=== PATIENT | female | born 1965 | race American Indian/Alaskan Native ===

== ENCOUNTER 2017-07-27 09:19 | Day surgery (SDC) | payer OTHER ==
[~2017-07-27 09:19] MED LIST: NACL 0.9% 1000 ML 1,000 ML ONE
--- NOTE | 2017-07-27 09:55 | Anesthesia Consultation ---
Anesthesia Consult and Med Hx Date of service: 07/27/17 - Airway Anesthetic Teeth Evaluation: Good, Chipped ROM Head & Neck: Adequate Mental/Hyoid Distance: Adequate Mallampati Class: Class III Intubation Access Assessment: Probably Good - Pulmonary Exam CTA: Yes - Cardiac Exam Cardiac Exam: RRR - Pre-Operative Health Status ASA Pre-Surgery Classification: ASA2 Proposed Anesthetic Plan: MAC - Pulmonary Hx Smoking: Yes (current smoker, a pack/week) - Cardiovascular System Hx Hypertension: Yes (self controlled) - Central Nervous System Hx Psychiatric Problems: Yes (anxiety and takes meds)
--- NOTE | 2017-07-27 09:55 | Anesthesia Day of Surgery ---
Anesthesia Day of Surgery - Day of Surgery Patient Examined: Yes Patient H&P Reviewed: Yes Patient is NPO: Yes
[2017-07-27] MEDS ORDERED: NACL 0.9% 1000 ML 1,000 ML IV SCH (11:00)
[2017-07-27] MEDS ORDERED: DIPRIVAN 10 MG/ML IV ONE ×3 (11:23→12:12)
--- NOTE | 2017-07-27 12:16 | Operative Report ---
Operative Report Operative Report: Date of procedure: 07/27/2017 Procedure: Colonoscopy with multiple snare polypectomies. Attending physician: Wally Givens MD Fashion Adviser: Wally Givens MD Indication: Patient is a 52-year-old female who presents for screening colonoscopy. The colonoscopy serves to evaluate patient for colorectal cancer screening. Consent: Informed consent was obtained after advising the patient and family regarding nature of this procedure, its indications, potential benefits as well as possible complications including but not limited to bleeding perforation and adverse reaction to medication, infection as well as other cardiopulmonary complications. An informed written and verbal consent was then obtained after due opportunity was provided for questions and answers. Monitoring: Patient was monitored continuously with pulse oximetry and electrocardiographic recordings as well as blood pressure recordings. Vital signs remained stable throughout this procedure with no untoward events. Preoperative assessment: Patient was assessed immediately prior to this procedure for capacity to tolerate monitored anesthesia care and moderate sedation as well as general anesthesia. Patient's ASA classification is 2, Mallampati class is 2, Hyomental distance is 3. Instrument: Vita[employer]orn video colonoscope Medications: Propofol given intravenously in divided doses. For details please refer to anesthesia records. Description of procedure: Patient was placed in the left lateral decubitus position after achieving sedation, a digital rectal examination was performed following which the colonoscope was introduced into the anal verge and advanced to the cecum which was identified by the cecal valve, the appendiceal orifice, as well as by the cecal strap and direct transillumination. The colonoscope was subsequently withdrawn with careful inspection of all mucosal surfaces. Patient tolerated this procedure well and was subsequently taken to the recovery room. The following findings were noted. Findings: Patient had extensive diverticulosis involving the sigmoid and descending colon. There was substantial retained stool in all segments of the colon. There was semi-formed stool in the ascending colon sigmoid colon and descending colon. In the sigmoid colon, patient had multiple polyps. 3 of the polyps were removed by snare electrocautery and retrieved. These measured approximately 1 cm each and with sessile. There was substantial retained stool in the section that we could not preclude the presence of flat polyps in the sigmoid colon which where obscured because of substantial retained stool. There were 2 pedunculated polyps in the transverse colon each measuring approximately 1.5 cm polyps were removed by snare electrocautery and retrieved. The cecum otherwise had substantially reduced to about there was no gross mucosal abnormalities seen with irrigation. The ascending colon had retained stool again with no gross mucosal abnormalities seen. On a retroflexed view of the anal verge, patient had internal hemorrhoids. Impression: Multiple sigmoid colon polyps status post snare polypectomy Multiple transverse colon polyp status post snare polypectomy Diverticular disease of the colon Retained stool ball colonoscopic preparation. Internal hemorrhoids. Plan: Follow pathology report. High-fiber diet. Repeat colonoscopy in 3-6 months due to poor colonoscopic preparation and substantial retained stool, and presence of multiple colon polyps.
--- NOTE | 2017-07-27 12:17 | Discharge Summary ---
Short Stay Discharge Plan Activity: advance as tolerated Weight Bearing Status: Weight Bear as Tolerated Diet: regular Follow up with: ISACC POOLE MD [Primary Care Provider] - 7 Days
[2017-07-27 12:40] VITALS: BP 160/96
--- NOTE | 2017-07-27 14:51 | Post Anesthesia Evaluation ---
- Post Anesthesia Evaluation Patient Participated: Yes Airway Patent: Yes Stable Respiratory Function: Yes Nausea/Vomiting: No Temp > 96.8F: Yes Pain Manageable: Yes Adequeate Hydration: Yes Anesthesia Complications: No
== END 2017-07-27 09:20 | disposition home or self-care (01) ==
LOC: GIO 09:19
PROVIDERS: ATTEND Internal Medicine Gastroenterology
DX: Z12.11 Encounter for screening for malignant neoplasm of colon (principal); D12.3 Benign neoplasm of transverse colon; D12.5 Benign neoplasm of sigmoid colon; K63.5 Polyp of colon; K57.30 Diverticulosis of large intestine without perforation or abscess without bleeding; K59.00 Constipation, unspecified; K64.8 Other hemorrhoids; I10 Essential (primary) hypertension; F17.210 Nicotine dependence, cigarettes, uncomplicated; F41.9 Anxiety disorder, unspecified
CPT/HCPCS: 45385; 81025; 88305; J2704; J7030